=== PATIENT | female | born 1940 | race Two or more races ===

== ENCOUNTER 2018-06-03 16:35 | Emergency (ER) | payer OTHER ==
[~2018-06-03] VITALS: Ht 160 cm; Wt 53.5 kg
[2018-06-03 16:35] VITALS: BP 118/74
--- NOTE | 2018-06-03 16:48 | NUR ---
DR LOMAS AT BEDSIDE FOR EVAL.
[2018-06-03] MEDS ORDERED: ONDANSETRON HCL/PF 4 MG/2 ML VIAL IVP ONE (17:00)
[2018-06-03] MEDS ORDERED: IV NS 0.9% 500 ML BAG IV ONE (17:00)
[2018-06-03] MEDS ORDERED: MORPHINE SULFATE INJ 2 MG/ML DISP.SYRIN IV ONE (17:00)
[2018-06-03 17:11] LABS: CALCIUM, SERUM 8.6 mg/dL (8.5-10.1); CARBON DIOXIDE 29 mmol/L (21-32); CHLORIDE 104 mmol/L (98-107); CREATININE 0.8 mg/dL (0.6-1.3); GLUCOSE 124 mg/dL (74-106); POTASSIUM 4.1 mmol/L (3.5-5.1); SODIUM SERUM 140 mmol/L (136-145); UREA NITROGEN, BLOOD 15 mg/dL (7-18)
[2018-06-03 17:21] LABS: BASOPHILS % (AUTO) 0.5 % (0.0-2.0); EOSINOPHILS % (AUTO) 1.7 % (0.0-6.0); HEMATOCRIT 40 % (33-45); HEMOGLOBIN 13.1 g/dL (11.5-14.8); LYMPHOCYTES # (AUTO) 1.9 /CMM (0.8-4.8); MEAN CORPUSCULAR HGB CONC 33 g/dl (31.0-36.0); MEAN CORPUSCULAR VOLUME 106 fL (82-100); MONOCYTES # (AUTO) 0.8 /CMM (0.1-1.30); MONOCYTES % (AUTO) 10.5 % (2.0-12.0); NEUTROPHILS # (AUTO) 4.7 /CMM (1.8-8.9); NEUTROPHILS % (AUTO) 62.3 % (43.0-81.0); PLATELET COUNT (AUTO) 274 /CMM (150-450); RDW COEFFICIENT OF VARIATION 14.2 (11.5-15.0); RED BLOOD CELL COUNT(AUTO) 3.76 MIL/uL (4.0-5.2); WHITE BLOOD COUNT (AUTO) 7.5 K/uL (4.3-11.0)
[2018-06-03 17:23] LABS: INR 0.99 (0.87-1.13)
[2018-06-03] MEDS ORDERED: ONDANSETRON HCL/PF 4 MG/2 ML VIAL ONE (17:35)
[2018-06-03] MEDS ORDERED: MORPHINE SULFATE INJ 4 MG/ML DISP.SYRIN ONE (17:36)
--- NOTE | 2018-06-03 17:46 | NUR ---
GLF, POSSIBLE L HIP FRACTURE, WAS GIVEN 50MCG FENTANYL TOTAL. PT AAOX3, VSS. DENIES CP, SOB, DIZZINESS, N/V @ THIS TIME. MEDICATED FOR PAIN PER ERMD ORDER. WILL CONT TO MONITIOR.
--- NOTE | 2018-06-03 17:55 | NUR ---
[facility] CALLED,PRESENTED CASE TO KEESHA DE LEÓN,WILL HAVE [facility] GIVE US A CALL
--- NOTE | 2018-06-03 19:19 | NUR ---
[facility] CALLED PATIENT WILL BE TX TO [facility] ROOM [id number] BLS ETA [id number]
--- NOTE | 2018-06-03 20:28 | NUR ---
PT EN ROUTE TO [facility]. REPORT GIVEN TO GENET ANDRADE FOR CONT OF CARE. PT STABLE, DENIES CP, SOB, DIZZINESS, N/V UPON LEAVING ED.
== END 2018-06-03 20:33 | disposition short-term general hospital (02) ==
LOC: ER 16:39
DX: S72.142A Displaced intertrochanteric fracture of left femur, initial encounter for closed fracture (principal); S51.012A Laceration without foreign body of left elbow, initial encounter; I10 Essential (primary) hypertension; F32.9 Major depressive disorder, single episode, unspecified; F17.200 Nicotine dependence, unspecified, uncomplicated; W01.0XXA Fall on same level from slipping, tripping and stumbling without subsequent striking against object, initial encounter; Y93.89 Activity, other specified; Y92.89 Other specified places as the place of occurrence of the external cause; Y99.8 Other external cause status
CPT/HCPCS: 36415; 51702; 71045; 73503; 80048; 85025; 85730; 96374; 96375; 99285; 99406; A4606; J2270; J2405; J7040; 73502; Z7610